=== PATIENT | female | born 1980 | race Caucasian/White ===

== ENCOUNTER 2017-02-11 19:57 | Emergency (ER) | payer OTHER ==
[~2017-02-11] VITALS: Ht 162.6 cm; Wt 86.9 kg
[~2017-02-11 19:57] MED LIST: PREN1TAB62 PO
[2017-02-11 20:00] VITALS: Ht 162.6 cm; Wt 86.9 kg
[2017-02-11] MEDS ORDERED: KETOROLAC 30 MG INJ IM STA (20:59)
[2017-02-11] MEDS ORDERED: HYDROCODONE/APAP (5/325) TAB PO ONE ×2 (21:00→23:00)
--- NOTE | 2017-02-11 21:42 | ERD ---
ER Documentation Chief Complaint Chief Complaint sp ground level fall, left hand pain HPI 36-year-old female, right-handed, presents to the emergency department complaining of left hand pain after a ground-level fall that occurred 2 days ago. The pain is constant, throbbing, 7/10, worsened by movement and palpation. The patient has been taking Tylenol and ibuprofen with mild improvement of the pain. Denies fevers, chills, no head trauma. ROS A 12-point review of systems was performed and negative other than presented in the history of present illness. SYSTEMIC symptoms: no fever, chills, no night sweats, no weight loss EYE symptoms: No blurred vision, no eye discharge OTOLARYNGEAL symptoms: No hearing loss. No ear pain, no sore throat CARDIOVASCULAR symptoms: No chest pain or discomfort, no palpitations. PULMONARY symptoms: No dyspnea, no cough, no wheezing. GASTROINTESTINAL symptoms: No abdominal pain, no nausea, no vomiting, no diarrhea MUSCULOSKELETAL symptoms: Per HPI NEUROLOGY symptoms: No confusion, no syncope, no numbness or tingling. SKIN: No rashes Medications Home Meds Active Scripts Ibuprofen* (Motrin*) 600 Mg Tab, 600 MG PO Q8 for PAIN AND/OR INFLAMMATION, #15 TAB Prov:JULIA PASCUAL MD 02/11/17 Hydrocodone/Acetaminophen (Desdemona 5-325 Tablet) 1 Each Tablet, 1 TAB PO TID Y for PAIN, #12 TAB Prov:JULIA PASCUAL MD 02/11/17 Reported Medications Vit-Iron Fumarate-FA ( Vitamin Tablet) 1 Each Tablet, 1 TAB PO DAILY, TAB 07/22/15 Allergies Allergies: Coded Allergies: codeine (Verified Allergy, Intermediate, 07/23/15) nausea/ vomiting PMhx/Soc History of Surgery: Yes (C SECTION, CHOLECYSTECTOMY) Hx Cardiac Disorders: Yes (DYSLIPIDEMIA) Hx Psychiatric Problems: No Hx Miscellaneous Medical Probl: No Hx Alcohol Use: Yes Hx Substance Use: No Hx Tobacco Use: Yes Smoking Status: Current every day smoker Physical Exam Vitals Vital Signs Date Time Temp Pulse Resp B/P Pulse Ox O2 Delivery O2 Flow Rate FiO2 02/11/17 20:00 99.3 97 20 140/82 97 Physical Exam Patient is in no acute distress, vital signs stable. Alert and fully oriented. EYES: PERRLA, EOMI, Sclera and conjunctiva appear normal. EARS: Canals clear, tympanic membranes WNL THROAT: Normal oropharynx. NECK: Supple, No lymphadenopathy. Full ROM without pain or tenderness. HEART: RRR, no rubs, murmurs, clicks or gallops. LUNGS: Clear to auscultation. ABDOMEN: Soft, non-tender without masses or hepatosplenomegaly. EXTREMITIES: Left hand: Inspection: Marked edema of the metacarpal area, with tenderness to palpation, no deformity. Neurovascular exam intact BACK: Full ROM, no deformity, normal back exam NEURO: Cranial nerves grossly intact, no motor or sensory deficit Results 24 hrs Current Medications Medications (Trade) Dose Ordered Sig/Jan Route PRN Reason Start Time Stop Time Status Last Admin Dose Admin Ketorolac Tromethamine (Toradol) 30 mg ONCE STAT IM 02/11/17 20:59 02/11/17 21:01 DC 02/11/17 21:13 Acetaminophen/ Hydrocodone Bitart (Desdemona (5/325)) 1 tab ONCE ONCE PO 02/11/17 21:00 02/11/17 21:01 DC 02/11/17 21:13 Acetaminophen/ Hydrocodone Bitart (Desdemona (5/325)) 1 tab ONCE ONCE PO 02/11/17 23:00 02/11/17 23:01 [place] [id number] Radiology Main Line: [phone] DIAGNOSTIC IMAGING REPORT Patient: KAYLA JUAREZ : 1980 Age: 36 Sex: F [id number] DOS: 02/11/172058 Ordering MD: JULIA PASCUAL MD Location: [facility] Room/Bed: PROCEDURE: X-ray left hand CLINICAL INDICATION: Left hand injury TECHNIQUE: 3 views left hand COMPARISON: None FINDINGS: Oblique fractures proximal metaphysis and metadiaphysis of the fourth metacarpal and the distal diaphysis and metaphysis of the fifth metacarpal. Remaining osseous structures without acute fracture. IMPRESSION: Oblique fracture of the proximal fourth metacarpal and distal fifth metacarpal. RPTAT: [facility] Physician Jennifer Date Time Electronically viewed and signed by Physician Jennifer on 02/11/2017 22:41 RS/ CC: JULIA PASCUAL MD Procedures/MDM 36-year-old female status post fall presents with worsening of left hand pain for 2 days. Vital signs stable, Physical exam revealed tenderness and marked swelling of the metacarpal area of the left hand, neurovascular exam intact Differential diagnosis include but not limited to: Sprain, contusion, dislocation. Low suspicion for compartment syndrome Radiology: Oblique fracture of the proximal fourth metacarpal and distal fifth metacarpal. Physical examination and clinical presentation consistent most likely with left metacarpal fracture of the fourth and fifth digit. During the ED course the patient remained stable, no new complaints. The patient received treatment with Toradol and Desdemona and a ulnar gutter splint was placed presenting overall improvement of the symptoms. Splint evaluation: Type: Left ulnar gutter Location: Left forearm Position: good alignment in anatomical position Neurovascular intact The patient was told that elevating the injured part will help reduce pain and swelling. Ice packs can decrease pain and promote healing when applied in the first two days after an injury. The pack should be dry on the outside. Apply it for half an hour three to four times a day. If you have an elastic bandage or sling, remove it for bathing, sleep and when the injury is significantly improved. Rewrap the bandage if it feels too loose or too tight. Results and clinical impression discussed with patient who agrees with management. The patient is stable to be treated outpatient and will be discharged home with a Rx for Desdemona and ibuprofen, some side effects of prescribed medications (headache, rash, nausea, vomiting, diarrhea, drowsiness, habituation, bleeding, hypertension, interactions with other medications) were reviewed. The patient was instructed to follow up with the primary care provider and orthopedic surgeon in the next 48h. If symptoms persist, worsen or new symptoms develop, then patient should return to the ED immediately. Instructions explained and given directly by me to the patient in Danish with acknowledgment and demonstrated understanding. Disclaimer: Inadvertent spelling and grammatical errors are likely due to EHR/ dictation software use and do not reflect on the overall quality of patient care. Also, please note that the electronic time recorded on this note does not necessarily reflect the actual time of the patient encounter. Departure Diagnosis: Primary Impression: Injury of hand Additional Impressions: Fracture of fifth metacarpal bone of left hand Fracture of fourth metacarpal bone of left hand Condition: Stable Additional Instructions: Call your primary care doctor TOMORROW for an appointment during the next 1-2 days. See the doctor sooner or return here if your condition worsens before your appointment time. Thank you very much for allowing us to participate in your care. Your health and safety is our top priority at [facility]. Have prescriptions filled and follow precisely the directions on the label. Follow-up with primary care provider during the next 4 days and bring all the information and medications prescribed. If illness has not improved in 2 days, then make an appointment with primary care provider. If the provider is unavailable, return to the Emergency Department immediately. JULIA PASCUAL MD Feb 11, 2017 21:42
[2017-02-11] MEDS ORDERED: HYDR-906 PO (21:46)
[2017-02-11] MEDS ORDERED: IBUP-1542 PO (21:46)
--- NOTE | 2017-02-11 22:42 | RADRPT ---
PROCEDURE: X-ray left hand CLINICAL INDICATION: Left hand injury TECHNIQUE: 3 views left hand COMPARISON: None FINDINGS: Oblique fractures proximal metaphysis and metadiaphysis of the fourth metacarpal and the distal diap hysis and metaphysis of the fifth metacarpal. Remaining osseous structures without acute fracture. IMPRESSION: Oblique fracture of the proximal fourth metacarpal and distal fifth metacarpal. RPTAT: [facility] Physician Jennifer Date Time Electronically viewed and signed by Reyes Daniels Physician on 02/11/2017 22:41 RS/
== END 2017-02-12 01:17 | disposition home or self-care (01) ==
LOC: FTE 19:57
DX: S62.317A Displaced fracture of base of fifth metacarpal bone, left hand, initial encounter for closed fracture (principal); S62.315A Displaced fracture of base of fourth metacarpal bone, left hand, initial encounter for closed fracture; W18.39XA Other fall on same level, initial encounter
CPT/HCPCS: 29125; 73130; 96372; J1885; Z7502; Z7610